=== PATIENT | female | born 1970 | race Caucasian/White ===

== ENCOUNTER 2020-07-13 14:30 | Outpatient (RCR) | payer OTHER, SELFPAY ==
--- NOTE | 2020-04-20 13:35 | PTOPEVAL ---
PHYSICAL THERAPY EVALUATION AND PLAN OF CARE 04-20-2020 The PT evaluation was completed for the diagnosis of R breast and rib pain. Her plan of treatment is scheduled for 2x/week for 4 weeks. Thank you for referring Jammie Tavares to [facility] [place]. Please review, sign, date and return this plan of care YANETH. I agree with and certify that the following plan of care is medically necessary. Referring Physician Date Referring Provider: Dr. Mercedes Carreno *PT Outpatient Evaluation Start: 04/20/20 12:34 Document 04/20/20 12:35 CARMEN (Rec: 04/20/20 13:34 CARMEN [id number]) Outpatient Past Medical History Past Medical History Source of Past Medical History Patient Neurological History Hx Migraine Yes: no migraines since surgery B breast reduction Cardiovascular History Hx Hypertension Yes: monitoring, no longer take meds Respiratory History Hx Respiratory Disorders No Significant History Gastrointestinal History Hx Gastrointestinal Disorders No Significant History Genitourinary History Hx Genitourinary Disorders No Significant History Musculoskeletal History Hx Other Musculoskeletal Disorders Yes: neck pain-chiropractor treatment PRN Hematological History Hx Hematological Disorders No Significant History Endocrine History Hx Endocrine Disorders No Significant History HEENT History Hx HEENT Disorders No Significant History Integumentary History Hx Cellulitis Yes: R breast after surgery Reproductive History Hx Hysterectomy Yes: Aug hysterectomy with abdominal cyst removed Hx Other Reproductive Disorders Yes: fibrotic breasts;enlarged breasts after had first child Other History Hx Other Surgeries Yes: breast reduction March ;-US guided vacuum biopsy R breast Evaluation Information Problem Diagnosis R breast and rib pain Onset May 2019 after vacuum biopsy Subjective Information had recent mammogram-per pt Query Text:As Reported By Patient/ scar tissue, no cancer ; Family Previous Treatments Previous Treatments For This Problem therapy here from May to Jul 2019 and in April 2018 for B breast pain; Prior Level of Function Activity Level (Last 3 Months) 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
--- NOTE | 2020-05-18 16:25 | PTOPEVAL ---
PHYSICAL THERAPY REEVALUATION AND UPDATED PLAN OF CARE 05-18-2020 Mrs. Tavares has received 8 PT sessions, from April 20 to today, for the diagnosis of R breast and rib pain. Compared to the initial eval: pain rating is less; increased R shoulder ROM and strength; no longer reports radicular pain into R upper arm; she reports performing more home activities; there is less tenderness reported with palpation over R breast. She does report pain and tenderness over L breast and there is fibrosis over lower breast, along the incision. Treatment for her L breast has been added to the plan of care. Continue PT 2x/week for 5 weeks. Thank you for referring Jammie Tavares to [facility]. Please review, sign, date and return this updated plan of care YANETH. I agree with and certify that the following plan of care is medically necessary. Referring Physician Date Referring Provider: Mercedes Carreon MD *PT Outpatient Re-Evaluation Document 05/18/20 15:30 CARMEN (Rec: 05/18/20 16:17 CARMEN [email or web address]) Subjective Information Jammie reports: starting Query Text:As Reported By Patient/ to feel much better, less pain Family and has been doing more at home; is still cautious to not overdo and increase her pain, but better; is doing her home stretching and exercises; with sleeping, wakes up due to pain 2-3x/ night; has not been having any pain in her upper arm, but feel in arm pit and R breast; also L breast hurting- request her L breast be assessed. She wants to continue therapy. Pain Assessment Timing of Pain Assessment Timing of Pain Assessment Assessment Pain Scale Pain Scale Used Numeric (1 - 10) Self Report Pain Assessment Left Breast(s) Reported Pain Level 3 Pain Description Spasms,Tightness Radicular Pain Location lower aspect of breast Pain Frequency Chronic Other Pain Description ball at bottom of breast Lowest Pain Intensity 3 Greatest Pain Intensity 4 Pain Aggravating Factors Exercise/Activity Right Breast(s) Reported Pain Level 3 Pain Description Sharp,Shooting,Soreness,Spasms ,Stabbing,Tightness,Tingling Radicular Pain Location R inner and lower-outer breast and arm pit Pain Frequency Continuous Lowest Pain Intensity 3 Greatest Pain Intensity 4 Pain Aggravating Factors Exercise/Activity Other Alleviating Interventions kinesiotape helped her pain;
--- NOTE | 2020-06-17 14:35 | PCPTNOTE ---
pt called and canceled today's appt;
--- NOTE | 2020-06-22 15:21 | PTOPEVAL ---
PHYSICAL THERAPY RE-EVALUATION AND UPDATED PLAN OF CARE 06-22-2020 Mrs. Tavares has received 16 PT sessions, for the diagnosis of R and L breast and rib pain, from to today. Refer to the Clinical Summary below for the changes since her last reevaluation. PT is scheduled to continue 2x/week for 6 weeks. Thank you for referring Jammie Tavares to [facility].? Please review, sign, date and return this updated plan of care YANETH. I agree with and certify that the following plan of care is medically necessary. Referring Physician Date Referring Provider: Mercedes Carreno MD *PT Outpatient Re-Evaluation Document 06/22/20 14:29 CARMEN (Rec: 06/22/20 15:14 CARMEN [id number]) Subjective Information Jammie reports: is feeling Query Text:As Reported By Patient/ better, tightness and balls Family are not as bad, after therapy, the balls are softer; feels like she is able to do more before the pain increases; has been careful and taking more breaks during her work day-- trying to work only 45 hours/ week; is doing her deep breathing and exercises at home and wants to continue therapy; Pain Assessment Timing of Pain Assessment Timing of Pain Assessment Assessment Pain Scale Pain Scale Used Numeric (1 - 10) Self Report Pain Assessment Right Breast(s) Reported Pain Level 4 Radicular Pain Location L breast- heavy but not hurting Pain Frequency Chronic Other Pain Description burning and heavy feeling R outer breast,into back of trunk;no humeral pain Lowest Pain Intensity 3 Greatest Pain Intensity 4 Pain Aggravating Factors Exercise/Activity Other Pain Aggravating Factors taking deep breath, lie on R side when sleeping; using arm more Pain Relief Interventions Used By Inactivity/Rest Patient Other Alleviating Interventions massage over breast; no meds; not using heat/ice lately Additional Pain Comments with sleeping awaken 2-3 x/ night from pain, change position and back sleep Pain Score Pain Score 4: Self Report Additional Pain Score Comments can do all of her home tasks, but take breaks and have more pain end of the day; Upper Extremity Range of Motion General Upper Extremity Range of
--- NOTE | 2020-07-15 13:35 | PCPTNOTE ---
This treatment is being continued on visit number [id number]. Please see documentation on both accounts to view progress. Completed interventions, outcomes, and problems have been marked as Inactive to facilitate the copying of the Care plan routine for recurring accounts.
== END 2020-07-15 10:32 | disposition home or self-care (01) ==
LOC: ANHPT 14:30
DX: N64.4 Mastodynia (principal); N64.59 Other signs and symptoms in breast
CPT/HCPCS: 97110; 97140; 97161

== ENCOUNTER 2020-10-05 09:00 | Outpatient (RCR) | payer OTHER, SELFPAY ==
--- NOTE | 2020-07-15 13:38 | PCPTNOTE ---
This treatment is being continued from visit number [id number] Please see documentation on both accounts to view progress. Completed interventions, outcomes, and problems have been marked as Inactive to facilitate the copying of the Care plan routine for recurring accounts.
--- NOTE | 2020-08-06 07:58 | PCPTNOTE ---
LATE entry: 08-05-2020: pt called and canceled reeval;
--- NOTE | 2020-08-16 16:14 | PTOPEVAL ---
PHYSICAL THERAPY RE-EVALUATION AND UPDATED PLAN OF CARE 08-16-2020 Thank you for referring Jammie Tavares to [facility].? Refer to the clinical summary below for her improvements with this reevaluation. She is scheduled to continue Physical Therapy? 2 x/week for 5 weeks. If she continues to improve, expect discharge at the next reevaluation. Please review, sign, date and return this updated plan of care [facility]. I agree with and certify that the following plan of care is medically necessary. Referring Physician Date Referring Provider: Dr. Mercedes Carreno *PT Outpatient RE-Evaluation Document 08/16/20 15:41 CARMEN (Rec: 08/16/20 16:14 CARMEN [id number]) Subjective Information Jammie reports--much better Query Text:As Reported By Patient/ , pain and tightness is less; Family the cupping has really helped; not taken any ibuprofen for the last 2 weeks; have recovered from turkey chiggers , off all meds and antibiotics ; have missed the past 2 weeks due to other obligations and would like to continue therapy to get more swelling out of the breast and trunk. Pain Assessment Timing of Pain Assessment Timing of Pain Assessment Assessment Pain Scale Pain Scale Used Numeric (1 - 10) Self Report Pain Assessment Right Breast(s) Reported Pain Level 1 Pain Description Sharp,Stabbing,Tightness Pain Frequency Chronic Other Pain Description water/fluid over R lateral trunk R; Lowest Pain Intensity 1 Greatest Pain Intensity 2 Pain Aggravating Factors Exercise/Activity Other Pain Aggravating Factors lie on R side 10-15 minutes; with really using arms,about 1 hour, stop/rest Pain Score Pain Score 1: Self Report Additional Pain Score Comments with sleeping, no awakening due to pain; still have pain with deep breathing, over R lateral trunk; L breast less pain 0-1/10; little ball that spikes pain only have a little tightness over sternum; not taking any ibuprofen or pain meds for about 2 weeks; Interventions Used Interventions Used By Clinicians Exercise Upper Extremity Range of Motion General Upper Extremity Range of Motion
--- NOTE | 2020-08-27 08:07 | PCPTNOTE ---
pt called and canceled today's appt; left message that she had increased pain after last treatment session and only wanted to receive treatment by Abby Barkley PTA for cupping. I called pt and left a message that Abby has not returned and will be in touch and let her know when she is available for appointments.
--- NOTE | 2020-09-23 16:40 | PTOPEVAL ---
PHYSICAL THERAPY RE-EVALUATION AND UPDATED PLAN OF CARE 09-23-2020 Refer to the clinical summary below for her improvements since the last reevaluation. PT is to continue 2x/week for 5 weeks. Thank you for referring Jammie Tavares to [facility] [place].? Please review, sign, date and return this plan of care YANETH. I agree with and certify that the following plan of care is medically necessary. Referring Physician Date Referring Provider: Mercedes Carreno *PT Outpatient Re-Evaluation Document 09/23/20 14:35 CARMEN (Rec: 09/23/20 16:40 CARMEN [email or web address]) Subjective Information Jammie reports: activity Query Text:As Reported By Patient/ tolerance of about 2 hours; Family feels like breasts are more swollen; has been doing her self massage and exercises; wants to continue therapy; Pain Assessment Timing of Pain Assessment Timing of Pain Assessment Assessment Pain Scale Pain Scale Used Numeric (1 - 10) Self Report Pain Assessment Right Breast(s) Reported Pain Level 2 Pain Description Soreness,Tender on Palpation, Throbbing,Tightness Pain Frequency Chronic Lowest Pain Intensity 2 Greatest Pain Intensity 3 Pain Score Pain Score 2: Self Report Additional Pain Score Comments reports L breast pain 1-2/10; kinesiotape helps R breast; Interventions Used Interventions Used By Clinicians Education Upper Extremity Range of Motion General Upper Extremity Range of Motion Gross Upper Extremity Range of Motion standing R shoulder flexion Comments 160' with reports stretching; abduction 160' with lateral trunk and arm pit stretching and pulling; Lymphedema Evaluation Skin Inspection Location Left Breast,Left Anterior Upper Quadrant,Right Breast, Right Anterior Upper Quadrant Tissue Texture Firm Lymphedema Stage II Skin Inspection Comment in supine: palpation over: R breast: fibrosis over: 2:00 from nipple to 3 cm; 6-8:00 from nipple to 5 cm; along inferior breast, there is a palpable ridge of fibrosis tissue--tenderness all above areas L breast fibrosis: 5:00 from nipple out 3 cm; inferior breast with ridge of fibrotic
--- NOTE | 2020-10-12 10:12 | PCPTNOTE ---
This treatment is being continued on visit number [id number]. Please see documentation on both accounts to view progress. Completed interventions, outcomes, and problems have been marked as Inactive to facilitate the copying of the Care plan routine for recurring accounts.
== END 2020-10-12 08:28 | disposition home or self-care (01) ==
LOC: ANHPT 09:00
DX: N64.4 Mastodynia (principal); N64.59 Other signs and symptoms in breast
CPT/HCPCS: 97140

== ENCOUNTER 2021-01-06 09:00 | Outpatient (RCR) | payer OTHER, SELFPAY ==
--- NOTE | 2020-10-12 10:30 | PCPTNOTE ---
PT is continued treatment from previous # [id number]; refer to previous EMR # for past treatment info;
--- NOTE | 2020-10-19 14:08 | PCPTNOTE ---
Pt called and cancelled , stating she had been at the ER with her for his heart. left and now is back at the ER.
--- NOTE | 2020-10-28 16:29 | PTOPEVAL ---
PHYSICAL THERAPY RE-EVALUATION AND UPDATED PLAN OF CARE 10-28-2020 Refer to the clinical summary below for the status of Mrs. Tavares, with the comparison to the last reevaluation. Thank you for referring Jammie Tavares to [facility].? PT is scheduled to continue? 2 x/week for 5 weeks. Please review, sign, date and return this updated plan of care YANETH. I agree with and certify that the following plan of care is medically necessary. Referring Physician Date Referring Provider: Dr. 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; her has been ill and she is doing more things around the house and more physical work there too; Pain Assessment Timing of Pain Assessment Timing of Pain Assessment Assessment Pain Scale Pain Scale Used Numeric (1 - 10) Self Report Pain Assessment Right Breast(s) Reported Pain Level 1 Pain Description Spasms,Stabbing,Tightness Radicular Pain Location R rib/trunk pain;R lateral breast & axilla; plastic cuff under R breast Other Pain Description shooting arm pit, spiking intermittent arm; vibrating or tremoring sensatio Lowest Pain Intensity 1 Greatest Pain Intensity 3 Pain Aggravating Factors Exercise/Activity Other Pain Aggravating Factors sometimes not doing anything and it hurts Additional Pain Comments report feel like side of trunk & rib cage is swollen;R breast is not swollen Pain Score Pain Score 1: Self Report Interventions Used Interventions Used By Clinicians Exercise Upper Extremity Range of Motion General Upper Extremity Range of Motion Gross Upper Extremity Range of Motion R shoulder active flexion to Comments 160'- reports pulling in trunk and lateral breast; when take a deep breath, pulling in trunk and ribcage; Lymphedema Therapy Skin Inspection Location Left Breast,Left Anterior Lower Quadrant,Left Anterior
--- NOTE | 2020-12-03 08:41 | PTOPEVAL ---
PHYSICAL THERAPY REEVALUATION AND UPDATED PLAN OF CARE 12-03-20 Refer to the clinical summary below for her status compared to the last reevaluation. PT is to continue treatment 2x/week for 5 weeks. Thank you for referring Jammie Tavares to [facility].? Please review, sign, date and return this plan of care YANETH. I agree with and certify that the following plan of care is medically necessary. Referring Physician Date Referring Provider: Dr. Mercedes Carreno Assessment Status Re-evaluation Subjective Information Jammie reports: therapy is Query Text:As Reported By Patient/ helping her pain and tightness Family -- cupping and tape really helping; has been ill with diarrhea since out of country trip, better but still have diarrhea; her has had surgery and limited activity, so she has been doing more at home- R shoulder hurting more ; feel like she has irritated her shoulder, had problems with shoulder pain for awhile; can only tolerate wearing a sports bra that is soft; wants to continue therapy, it is helping her pain. Pain Assessment Timing of Pain Assessment Timing of Pain Assessment Assessment Pain Scale Pain Scale Used Numeric (1 - 10) Self Report Pain Assessment Right Breast(s) Reported Pain Level 2 Pain Description Radiating,Sharp,Shooting, Soreness,Tender on Palpation, Tightness Radicular Pain Location R shoulder mid humerus pain; Pain Frequency Chronic,Continuous Other Pain Description breast feels like tight play dough that is in knots;pain over R breast&trun Lowest Pain Intensity 1 Greatest Pain Intensity 2 Pain Aggravating Factors Exercise/Activity Pain Behaviors Anxious,Grimacing,Guarding Pain Score Pain Score 2: Self Report Interventions Used Interventions Used By Clinicians Education Other Alleviating Interventions is not taking any pain meds; tape helps pain; Upper Extremity Range of Motion General Upper Extremity Range of Motion Gross Upper Extremity Range of Motion R shoulder active abduction to Comments 155', with increased pain in mid humerus, with shoulder range of abduction over 90'; with taking
--- NOTE | 2021-01-06 11:19 | PTOPEVAL ---
PHYSICAL THERAPY DISCHARGE 01-06-21 Refer to the clinical summary below for pt;s status today, compared to the last reevaluation. Jammie continues to have pain and firmness of the tissue of both breasts. PT has given her some intermittent pain relief, but is not sustained with any lasting effects. PT cannot be justified to continue at this time. She presents with new PT orders for treatment of her R shoulder rotator cuff tear from ortho , and PT will be working with her on the shoulder. Thank you for referring Jammie Tavares to [facility].? Please review, sign, date and return this Discharge report YANETH. I agree with and certify that the following plan of care is medically necessary. Referring Physician Date Referring Provider: Dr. Mercedes Carreno Document 01/06/21 09:00 CARMEN (Rec: 01/06/21 11:19 CARMEN [email or web address]) Assessment Status Discharge Subjective Information Jammie reports: continues Query Text:As Reported By Patient/ to have tightness, knots and Family pain over both breasts and trunk; cannot lie on her R side, has swelling over her breasts, side of trunk and shoulder; is using the swell pad under her bra; has more swelling and pain after more activity and using arm; her has had surgery, with lifting and activity limitations, so she has been doing more than she usually does; is going to have a mammogram and US of both breasts later today, and to see next week. And may be having an MRI of her breasts to see why she is still having pain and problems; Pain Assessment Timing of Pain Assessment Timing of Pain Assessment Assessment Pain Scale Pain Scale Used Numeric (1 - 10) Self Report Pain Assessment Right Breast(s) Reported Pain Level 3 Pain Description Aching,Dull,Heavy,Pulling, Radiating,Sharp,Shooting, Spasms,Tender on Palpation, Throbbing,Tightness Pain Radiation Right Shoulder Radicular Pain Location also having pain R shoulder- MRI reports partial tear in supraspinatus Pain Frequency Chronic,Continuous Lowest Pain Intensity 2 Greatest Pain Intensity 5 Pain Aggravating Factors Exercise/Activity Other Pain Aggravating Factors
== END 2021-01-07 07:42 | disposition home or self-care (01) ==
LOC: ANHPT 09:00
DX: N64.4 Mastodynia (principal); N64.59 Other signs and symptoms in breast
CPT/HCPCS: 97140

== ENCOUNTER 2021-02-15 15:30 | Outpatient (RCR) | payer OTHER, SELFPAY ==
[2021-01-06 09:23] VITALS: BP_SYST 120
--- NOTE | 2021-01-06 11:45 | PTOPEVAL ---
PHYSICAL THERAPY EVALUATION AND PLAN OF CARE 01-06-21 Thank you for referring Jammie Tavares to [facility] for the diagnosis of R shoulder partial rotator cuff tear.? She is scheduled to be seen for therapy? 2 x/week for 4 weeks. Please review, sign, date and return this plan of care YANETH. I agree with and certify that the following plan of care is medically necessary. Referring Physician Date Attending Provider: Negro Cates DO *PT Outpatient Evaluation Document 01/06/21 09:23 CARMEN (Rec: 01/06/21 10:00 CARMEN [id number]) Outpatient Past Medical History Past Medical History Source of Past Medical History Recalled from Previous Visit, Confirmed with Patient/Family Neurological History Hx Migraine Yes: no migraines since surgery B breast reduction Cardiovascular History Hx Hypertension Yes: monitoring, no longer take meds Respiratory History Hx Respiratory Disorders No Significant History Gastrointestinal History Hx Gastrointestinal Disorders No Significant History Genitourinary History Hx Genitourinary Disorders No Significant History Musculoskeletal History Hx Other Musculoskeletal Disorders Yes: neck pain-chiropractor treatment PRN Hematological History Hx Hematological Disorders No Significant History Endocrine History Hx Endocrine Disorders No Significant History HEENT History Hx HEENT Disorders No Significant History Integumentary History Hx Cellulitis Yes: R breast after surgery Reproductive History Hx Hysterectomy Yes: Aug hysterectomy with abdominal cyst removed Hx Other Reproductive Disorders Yes: fibrotic breasts;enlarged breasts after had first child Other History Hx Other Medical Conditions Yes: lymphedema over R and L breasts and R lateral trunk Hx Other Surgeries Yes: breast reduction March ;-US guided vacuum biopsy R breast Evaluation Information Problem Diagnosis R rotator cuff tear Onset Jun 2020 Subjective Information gradual increase in shoulder Query Text:As Reported By Patient/ pain with increased activity Family and use of arm; continued to hurt, eased some, but never went away; her activity level has increased due to her having surgery and restrictions, so she has been doing more home tasks; went to primary, then refer to
--- NOTE | 2021-01-24 09:30 | PCPTNOTE ---
Patient did not show up for scheduled appointment this date. Contacted pt thought her appt was tomorrow. Checked her schedule and stated that yes, she was supposed to come in today.
--- NOTE | 2021-02-15 16:24 | PTOPEVAL ---
PHYSICAL THERAPY RE-EVALUATION REPORT 5-4-21 Refer to the clinical summary below, for her status today, compared to the initial evaluation. Mrs. Tavares wants to have a follow up appointment to discuss her PT treatment, before she makes any additional PT appointments. Thank you for referring Jammie Tavares to [facility].? Please review, sign, date and return this reevaluation report YANETH. I agree with and certify that the following plan of care is medically necessary. Referring Physician Date Attending Provider: Negro Cates MD Assessment Status Re-evaluation Subjective Information Jammie reports: able to Query Text:As Reported By Patient/ move arm and lift it more; Family going back is still a problem; my bed at home is soft and hurts my shoulder- went out of town and that bed was better for my pain; cannot lie on R side at all- immediately painful, hand numb pain continues with driving and turning the wheel; flew over this pass weekend and had eye inflammation from artificial eye lashes- saw eye dr for it; more swelling in ankles, legs and trunk; continues to have pain and swelling over R breast and trunk; have been using her compression bra; is going to make a follow up appt with and wants to discuss her therapy with , and will call if she needs additional appointments for her shoulder treatment. Pain Assessment Timing of Pain Assessment Timing of Pain Assessment Assessment Pain Scale Pain Scale Used Numeric (1 - 10) Self Report Pain Assessment Right Shoulder(s) Reported Pain Level 3 Pain Description Numbness,Tingling Radicular Pain Location R fingers numb, all except 3rd finger, depend upon position; lateral R neck Pain Frequency Chronic Other Pain Description daggers into shoulder few time over past weekend; top shoulder,ant/post&lat Lowest Pain Intensity 2 Greatest Pain Intensity 4 Pain Aggravating Factors Exercise/Activity Other Pain Aggravating Factors lie on R side, or flat on back Pain Score Pain Score
--- NOTE | 2021-03-22 10:54 | PCPTNOTE ---
PHYSICAL THERAPY DISCHARGE 03-22-21 Attending Provider: Negro Cates MD Patient:Jammie Tavares Date of :1970 Mrs. Tavares has not returned for any further treatments since the reevaluation on 02/15/2021, therefore she will be discharged at this time. Thank you for referring Jammie to [facility]. Please review, sign, date and return this discharge summary YANETH. I have been updated about the patient's current status and I agree with discharge from the above service at this time. Referring Physician Date
== END 2021-03-22 13:42 | disposition home or self-care (01) ==
LOC: ANHPT 15:30
DX: M75.112 Incomplete rotator cuff tear or rupture of left shoulder, not specified as traumatic (principal)
CPT/HCPCS: 97014; 97032; 97110; 97140; 97161; G0283

== ENCOUNTER 2022-07-04 17:27 | Emergency (ER) | payer OTHER, SELFPAY ==
[2022-07-04] VITALS (15 sets, daily range): BP systolic 131–164; BP diastolic 79–97; PULSE 62–75; RESP 14–32; TEMP 36.4; O2SAT 94–99
--- NOTE | ~2022-07-04 | XR_ITS ---
EXAMINATION: XR ribs LT 2V w CXR 2V Exam Date/Time: 07/04/2022 21:02 CDT HISTORY: HTN, PEDAL EDEMA, L SIDED CP/POSTERIOR RIB PAIN SINCE 06/25 Comparison: None available. RESULT: Lines, tubes, and devices: None. Lungs and pleura: Clear. Cardiomediastinal silhouette: Normal. Bones/ABD: No acute osseous or upper abdominal finding. Mild scoliosis. IMPRESSION: No acute osseous finding in the left ribs. Reviewed, dictated and finalized at location K.
--- NOTE | 2022-07-04 21:15 | ED.GENADULT ---
HPI - General Adult General Chief complaint: Unspecified Stated complaint: HIGH BP Time Seen by Provider: 07/04/22 20:08 History of Present Illness HPI narrative: Patient is a 51-year-old female who presents ER with left-sided chest wall pain. On 06/25 patient went upstairs to a family friend having suffered a cardiac arrest. She began performing CPR. Since then she has been having some achiness in her low back and on her left chest wall. She was seen by her PCP because it was found that her blood pressure was high after the paramedics came out and evaluated her and the individual. She has been started on amlodipine and then most recently hydrochlorothiazide today. Over the last couple days patient has noticed some edema in her lower extremities have improved with putting her feet up. No cramping in calves. No mopped assist. No exertional chest pain. No cough or shortness of breath. 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 She has been taking Tylenol for pain which has not been helping. Related Data Home Medications Medication Instructions Recorded Confirmed amlodipine 5 mg tablet mg 07/04/22 Allergies Allergy/AdvReac Type Severity Reaction Status Date / Time No Known Allergies Allergy Unverified 04/01/18 06:24 Review of Systems Review of Systems: All systems reviewed & are unremarkable except as noted in HPI and below Constitutional: Constitutional: Denies chills and Denies fever(s) Cardiovascular: Cardiovascular: Denies chest pain, Denies rapid heart rate and Denies palpitations Respiratory: Respiratory: Denies cough, Denies pain with cough and Denies dyspnea Gastrointestinal: Gastrointestinal: Denies abdominal pain, Denies diarrhea, Denies nausea and Denies vomiting Musculoskeletal: Musculoskeletal: Reports back pain, Reports myalgias, Denies arthralgias and Denies joint swelling PMFSH Past Medical History Medical History (Updated 07/04/22 @ 21:40 by Mil Brambila MD) Hypertension Surgical History Surgical History (Updated 07/04/22 @ 21:18 by Mil Brambila MD) H/O bilateral breast reduction surgery H/O tubal ligation History of tonsillectomy Exam Narrative: GENERAL: Well-appearing, well-nourished, and in no acute distress. HEAD: Normocephalic, atraumatic. EYES: PERRL and EOMI. ENT: Mucous membranes moist. CHEST: Clear to auscultation. No respiratory distress. Mild pain left lateral chest wall. HEART: Regular rate and rhythm. Normal peripheral pulses. ABDOMEN: Soft, nontender, nondistended. EXTREMITIES: Normal range of motion. Trace pedal edema. SKIN: Warm, dry, no rash. NEURO: Alert and oriented x3. PSYCH: Normal mood and affect. Course Course Emergency Course: Patient resting comfortably. Informed of results. Blood pressure improved 136/78 mmHg. Comfortable with discharge home. Symptoms seem musculoskeletal and patient certainly has a lot of stress given return situation. Vital Signs Vital signs: Vital Signs Temperature 97.5 F L 07/04/22 17:30 Pulse Rate 73 07/04/22 17:30 Respiratory Rate 18 07/04/22 17:30 Blood Pressure 164/92 H 07/04/22 17:30 Temperature 97.5 F L 07/04/22 17:30 Pulse Rate 73 07/04/22 17:30 Respiratory Rate 18 07/04/22 17:30 Blood Pressure 164/92 H 07/04/22 17:30 Medical Decision Making Vital Signs Vital Signs: Vital Signs Temperature 97.5 F L 07/04/22 17:30 Pulse Rate 73 07/04/22 17:30 Respiratory Rate 18 07/04/22 17:30 Blood Pressure 164/92 H 07/04/22 17:30 Temperature 97.5 F L 07/04/22 17:30 Pulse Rate 73 07/04/22 17:30 Respiratory Rate 18 07/04/22 17:30 Blood Pressure 164/92 H 07/04/22 17:30 Discharge Plan Discharge Clinical Impression: Chest wall pain Patient Disposition: Home, Self-Care Condition: Stable Instructions:
[2022-07-04] MEDS: KETOROLAC (*BKC) 60 MG/2 ML VIAL IM (21:54)
== END 2022-07-04 22:17 | disposition home or self-care (01) ==
PROVIDERS: Emergency Provider Emergency Medicine
DX: R07.89 Other chest pain (principal); I10 Essential (primary) hypertension
CPT/HCPCS: 71046; 71100; 96372; 99283; J1885

== ENCOUNTER 2023-03-09 17:11 | Emergency (ER) | payer BC, SELFPAY ==
--- NOTE | ~2023-03-09 | XR_ITS ---
EXAMINATION: XR ribs LT 2V DATE: 03/09/2023 17:41 INDICATION: Fall. Left chest injury and pain. TECHNIQUE: 2 views of the left ribs on 3 radiographs were obtained. COMPARISON: Chest and left rib radiographs 07/04/2022 FINDINGS: There is no left-sided pneumonia, pleural effusion, or pneumothorax. The heart size is norm al. There is a fracture of anterior left seventh rib. IMPRESSION: 1. Fracture of anteroinferior left seventh rib. Reviewed, dictated and finalized at location E.
[2023-03-09 17:13] VITALS: BP 148/95; PULSE 68; RESP 18; TEMP 36.5; O2SAT 100
[2023-03-09] MEDS: LIDOCAINE 5% PATCH 1 PATCH TRANSDERM (18:43)
[2023-03-09] MEDS: IBUPROFEN 600 MG TABLET PO (18:45)
[2023-03-09] MEDS: ACETAMINOPHEN 325 MG TABLET 650 MG PO (18:46)
--- NOTE | 2023-03-09 19:08 | ED.FALL ---
HPI - Fall General Chief Complaint: Fall Stated Complaint: left side pain Time Seen by Provider: 03/09/23 18:22 History of Present Illness HPI Narrative: 52-year-old female here for evaluation of left rib pain x1 day. Patient states that she was walking up the steps carrying a laundry basket in her usual state of health when she missed a step causing laundry basket to push into the left side of her ribs. Since then, she has had left-sided rib pain with inspiration. Denies any shortness of breath, nausea or vomiting, other injuries in the accident. Related Data Home Medications Medication Instructions Recorded Confirmed amlodipine 5 mg tablet mg 07/04/22 Allergies Allergy/AdvReac Type Severity Reaction Status Date / Time No Known Allergies Allergy Unverified 03/09/23 18:22 Review of Systems Review of Systems: Gen: Denies fevers or chills Eyes: Denies eye pain or visual change ENT: Denies congestion Respiratory: Denies shortness of breath or cough CV: Denies chest pain or palpitations GI: Denies abdominal pain nausea, emesis or diarrhea denies burning, urgency, frequency or hematuria Musculoskeletal: Reports left-sided rib pain Neuro: Denies numbness, tingling, weakness or focal weakness Skin: Denies rash Except as documented, all other systems reviewed and negative [facility] Past Medical History Medical History Hypertension Surgical History Surgical History H/O bilateral breast reduction surgery H/O tubal ligation History of tonsillectomy Exam Narrative: APPEARANCE: No acute distress, nontoxic, resting in bed EYES: EOMI HEENT: Normocephalic, atraumatic, OMM RESPIRATORY: No respiratory distress Clear to auscultation bilaterally with no rhonchi wheezing or rales. CARDIOVASCULAR: Regular rate and rhythm without murmurs rubs or gallops. ABDOMINAL: Soft, nontender, nondistended, no rebound or guarding MUSCULOSKELETAL: There is tenderness to palpation along the left inferior ribs. Moves all extremities. No clubbing, cyanosis or edema. NEURO: Awake and alert. Following commands, speech normal, no focal deficits SKIN:: Warm, dry. No rashes lesions or abrasions PSYCHIATRIC: Normal affect/mood Course Vital Signs Vital signs: Vital Signs Temperature 97.7 F 03/09/23 17:13 Pulse Rate 68 03/09/23 17:13 Respiratory Rate 18 03/09/23 17:13 Blood Pressure 148/95 H 03/09/23 17:13 Pulse Oximetry 100 03/09/23 17:13 Oxygen Delivery Room Air 03/09/23 17:13 Temperature 97.7 F 03/09/23 17:13 Pulse Rate 68 03/09/23 17:13 Respiratory Rate 18 03/09/23 17:13 Blood Pressure 148/95 H 03/09/23 17:13 Pulse Oximetry 100 03/09/23 17:13 Oxygen Delivery Room Air 03/09/23 17:13 MDM - Fall MDM Narrative Medical decision making narrative: 52-year-old female here for evaluation of left-sided rib pain after a plastic laundry basket pushed into her rib cage yesterday. She has tenderness to palpation in the lower anterior ribs but no flail chest deformity or decreased breath sounds. Evidence of a nondisplaced seventh anterior rib fracture on the x-ray. Patient has a incentive spirometer at home that she was instructed to use. Feeling improved after Lidoderm patches, Tylenol and ibuprofen. We discussed return precautions and she voiced understanding. Discharge Plan Discharge Clinical Impression: Fracture of rib Patient Disposition: Home, Self-Care Condition: Stable Instructions: Antibiotic Form, Rib Fracture (ED) Additional Instructions: You were found to have a rib fracture today. Please use the lidocaine patches as indicated. Return to the emergency department if you cough up blood, have worsening symptoms, other concerns. Prescriptions: New lidocaine [Lidoderm] 5 % adhesive patch,medicated 1 patch topical DAILY Qty: 30 0RF
== END 2023-03-09 19:07 | disposition home or self-care (01) ==
LOC: ANHED 19:01
PROVIDERS: Emergency Provider Physician Assistant
DX: S22.32XA Fracture of one rib, left side, initial encounter for closed fracture (principal); I10 Essential (primary) hypertension; W22.8XXA Striking against or struck by other objects, initial encounter
CPT/HCPCS: 71100; 99283; A9270

== ENCOUNTER 2024-05-31 08:31 | Emergency (ER) | payer SELFPAY ==
--- NOTE | ~2024-05-31 | US_ITS ---
EXAMINATION: US venous doppler [facility] DATE: 05/31/2024 10:37 INDICATION: Left lower limb pain, swelling and erythema TECHNIQUE: Grayscale ultrasound images without and with compression and Doppler ultrasound images of the left lower extremity veins were obtained. COMPARISON: None. FINDINGS: The visualized portions of left common femoral vein, profunda (deep) femoral vein, femoral vein, popl iteal vein, peroneal veins, posterior tibial veins, gastrocnemius vein and greater saphenous vein out flow are patent. IMPRESSION: 1. No deep venous thrombosis in the left lower limb. Reviewed, dictated and finalized at location A.
[2024-05-31 08:32] VITALS: BP 134/88; PULSE 74; RESP 18; TEMP 36.3; O2SAT 97
--- NOTE | 2024-05-31 10:09 | ED.GENADULT ---
HPI - General Adult General Chief complaint: Environmental Exposure Stated complaint: ?DVT Time Seen by Provider: 05/31/24 10:01 History of Present Illness HPI narrative: 53 old female presents to the emergency department for evaluation for a worsening swelling and erythema affecting her left leg. Symptoms started just a few days ago and have worsened. Related Data Home Medications Medication Instructions Recorded Confirmed amlodipine 5 mg tablet mg 07/04/22 Allergies Allergy/AdvReac Type Severity Reaction Status Date / Time No Known Allergies Allergy Unverified 03/09/23 18:22 Review of Systems Review of Systems: All systems reviewed & are unremarkable except as noted in HPI and below PMFSH Past Medical History Medical History Hypertension Surgical History Surgical History H/O bilateral breast reduction surgery H/O tubal ligation History of tonsillectomy Exam Narrative: APPEARANCE: Well appearing, no pain, no distress, well-nourished. HEAD: normocephalic, atraumatic. EYES: PERRLA/EOMI, conjunctivae clear. NOSE: Normal no drainage EARS:TMS clear with good light reflex. THROAT: Pharynx clear, no exudate. NECK: Supple. No adenopathy, no masses. RESPIRATORY: Airway patent, respirations nonlabored. Clear to auscultation bilaterally, no rales, rhonchi, wheezing. CARDIOVASCULAR: Regular rate and rhythm without murmurs rubs or gallops. ABDOMINAL: Soft, nontender, nondistended, normal bowel sounds MUSCULOSKELETAL: Erythema of the left lower extremity consistent with cellulitis NEURO: Alert. Cranial nerves II through XII intact. Good gait. Good coordination SKIN: Warm, dry. Normal Color Course Vital Signs Vital signs: Vital Signs Temperature 97.3 F L 05/31/24 08:32 Pulse Rate 74 05/31/24 08:32 Respiratory Rate 18 05/31/24 08:32 Blood Pressure 134/88 05/31/24 08:32 Pulse Oximetry 97 05/31/24 08:32 Oxygen Delivery Room Air 05/31/24 08:32 Temperature 97.9 F 05/31/24 11:42 Pulse Rate 71 05/31/24 11:42 Respiratory Rate 16 05/31/24 11:42 Blood Pressure 140/86 05/31/24 11:42 Pulse Oximetry 98 05/31/24 11:42 Oxygen Delivery Room Air 05/31/24 08:32 Medical Decision Making [facility] Narrative Medical decision making narrative: [age] old female presents to the emergency department for evaluation for redness and swelling of the left lower extremity. Patient is afebrile with no leukocytosis and a stable hemoglobin of 16.9. Patient has no significant abnormalities on her CMP ultrasound was negative for DVT. Patient has lower extremity erythema and tenderness consistent with cellulitis. Patient was started on Rocephin the emergency department. Patient was discharged home on Keflex. Differential Diagnosis Differential Diagnosis: Cellulitis, DVT, chronic venous stasis, allergic reaction Vital Signs Vital Signs: Vital Signs Temperature 97.3 F L 05/31/24 08:32 Pulse Rate 74 05/31/24 08:32 Respiratory Rate 18 05/31/24 08:32 Blood Pressure 134/88 05/31/24 08:32 Pulse Oximetry 97 05/31/24 08:32 Oxygen Delivery Room Air 05/31/24 08:32 Temperature 97.9 F 05/31/24 11:42 Pulse Rate 71 05/31/24 11:42 Respiratory Rate 16 05/31/24 11:42 Blood Pressure 140/86 05/31/24 11:42 Pulse Oximetry 98 05/31/24 11:42 Oxygen Delivery Room Air 05/31/24 08:32 Lab Data Lab results reviewed: Yes I reviewed the patient's lab results. 05/31/24 10:57 05/31/24 10:57 Labs: Lab Results 05/31/24 Range/Units 10:57 WBC 9.3 (4.5-10.0) K/mm3 RBC 5.20 (4.2-5.4) M/mm3 Hgb 16.9 H (12.0-15.0) g/dL Hct 50.2 H (37.0-47.0) % MCV 96.5 (80-100) fl MCH 32.5 (26-34) pg MCHC 33.7 (32-36) g/dl RDW 12.7 (11.5-14.5) % Plt Count 331 (150-375) k/mm3 MPV 10.0 (7.4-10.4) f
[2024-05-31 11:05] LABS: Basophils Percent Auto 0.4 % (0.2-1.2); Eosinophils Absolute Auto 0.1 K/mm3 (0-0.3); Eosinophils Percent Auto 0.8 % (0-4.4); Hematocrit 50.2 % (37.0-47.0); Hemoglobin 16.9 g/dL (12.0-15.0); Immature Granulocyte Absolute 0.04 K/mm3 (0.00-0.031); Immature Granulocyte Percent A 0.4 % (0-0.5); Lymphocytes Absolute Auto 1.73 K/mm3 (0.9-3.2); Lymphocytes Percent Auto 18.6 % (18.3-44.2); Mean Corpuscular HGB Conc 33.7 g/dl (32-36); Mean Corpuscular Hemoglobin 32.5 pg (26-34); Mean Corpuscular Volume 96.5 fl (80-100); Monocytes Absolute Auto 0.8 K/mm3 (0.1-0.6); Monocytes Percent Auto 8.9 % (2.6-8.5); Neutrophils Absolute Auto 6.6 K/mm3 (1.3-6.7); Neutrophils Percent Auto 70.9 % (45.5-73.1); Platelet Count Result 331 k/mm3 (150-375); Red Cell Distribution Width 12.7 % (11.5-14.5); White Blood Count 9.3 K/mm3 (4.5-10.0)
[2024-05-31 11:16] LABS: INR 0.9; Partial Thromboplastin Time 25.9 Seconds (22.3-36.8); Prothrombin Time 12.2 Seconds (11.1-14.7)
[2024-05-31 11:20] LABS: Alanine Aminotransferase 25 U/L (6-35); Albumin Level 4.5 g/dL (3.5-5.1); Alkaline Phosphatase 100 U/L (38-126); Anion Gap 10 mmol/L (4-12); Aspartate Amino Transferase 31 U/L (14-36); Bilirubin,Total 0.6 mg/dL (0.2-1.3); Blood Urea Nitrogen 25 mg/dL (7-17); Calcium 9.4 mg/dL (8.4-10.2); Carbon Dioxide 31 mmol/L (22-30); Chloride 99 mmol/L (98-107); Estimated CRCL calculation 60 ml/min; Estimated Glomerular Filt Rate > 60; Glucose 96 mg/dL (65-110); Potassium 3.3 mmol/L (3.4-5.0); Sodium 140 mmol/L (137-145)
[2024-05-31 11:33] VITALS: O2SAT 100
[2024-05-31 11:42] VITALS: BP 140/86; PULSE 71; RESP 16; TEMP 36.6; O2SAT 98
== END 2024-05-31 12:19 | disposition home or self-care (01) ==
PROVIDERS: Emergency Provider Emergency Medicine
DX: L03.116 Cellulitis of left lower limb (principal); I10 Essential (primary) hypertension
CPT/HCPCS: 36415; 80053; 85025; 85610; 85730; 93971; 96365; 99284; J0696